=== PATIENT | male | born 1975 | race Caucasian/White ===

== ENCOUNTER 2022-05-10 11:56 | Emergency (ER) | payer OTHER, SELFPAY ==
[2022-05-10 12:04] VITALS: BP 118/72; PULSE 92; RESP 20; TEMP 36.4; O2SAT 95
--- NOTE | 2022-05-10 12:14 | ED.URI ---
HPI - URI/Sore Throat General Chief Complaint: Upper Respiratory Infection Stated Complaint: Chest Congestion/Cough Time Seen by Provider: 05/10/22 12:14 Source: patient and RN notes reviewed History of Present Illness HPI Narrative: Patient is a 47-year-old male who presents to urgent care with complaints of chest congestion, cough and wheezing. Patient states that it has been ongoing for the last few days and worsened. Patient states he has a history of bronchitis and pneumonia. States he has been using an inhaler provided by his doctor. Also been using Robitussin, Janice-[place], [id number] antihistamines and DayQuil/NyQuil. Patient also reports of a low-grade fever. No other acute complaints. No acute distress noted. Patient aware of the plan of care. Some parts of this dictation were generated by voice recognition software and may contain typographical and/or grammatical inaccuracies. Related Data Home Medications Medication Instructions Recorded Confirmed amlodipine 5 mg tablet mg 05/10/22 lisinopril 20 mg tablet mg 05/10/22 trazodone 50 mg tablet mg 05/10/22 Allergies Allergy/AdvReac Type Severity Reaction Status Date / Time No Known Allergies Allergy Unverified 01/03/15 15:43 Review of Systems Review of Systems: CONSTITUTIONAL: Reports of low-grade fever EYES: Denies visual changes, redness, or discharge. ENT: Denies rhinorrhea, congestion, sore throat, or otalgia. CARDIOVASCULAR: Denies chest pain, palpitations, or edema. RESPIRATORY: Reports chest congestion, cough and dyspnea GASTROINTESTINAL: Denies abdominal pain, nausea, vomiting, or diarrhea. GENITOURINARY: Denies dysuria or hematuria. SKIN: Denies rash or itching. MUSCULOSKELETAL: Denies back pain, joint pain, or myalgia. NEUROLOGIC: Denies headache, numbness, or weakness. All other systems reviewed are negative, except as documented in HPI. PMFSH Comments At the time of my signature, I reviewed and agree with the nursing past medical, surgical, social, and family history. There is no relevant family history pertinent to the patient complaint. Exam Narrative: GENERAL: This is a well-nourished, well-developed patient, in no apparent distress. HEAD: normocephalic, atraumatic. EYES: PERRL. Sclera clear/white. Vision is grossly intact. EARS: External ears normal, auditory canals clear and without drainage, slightly retracted, effused erythema neck right TM. Left TM normal without perforation. Hearing grossly intact. NOSE: External nose normal with no obvious nasal discharge, nares without redness, clear rhinorrhea. THROAT: Mucous membranes moist, posterior pharynx clear. Moderate postnasal drainage NECK: Neck supple RESPIRATORY: Inspiratory wheezes throughout with slight crackles in the bases SKIN: warm, intact with no suspicious lesions or rash, good texture and turgor. NEURO: awake, alert, and oriented to person, place and time. There were no obvious focal neurologic abnormalities. EXTREMITIES: No clubbing, cyanosis, or edema. Course Course Level of Care: Express Care Visit Vital Signs Vital signs: Vital Signs Temperature 97.6 F 05/10/22 12:04 Pulse Rate 92 05/10/22 12:04 Respiratory Rate 20 05/10/22 12:04 Blood Pressure 118/72 05/10/22 12:04 Pulse Oximetry 95 05/10/22 12:04 Oxygen Delivery Room Air 05/10/22 12:04 Temperature 97.6 F 05/10/22 12:04 Pulse Rate 92 05/10/22 12:04 Respiratory Rate 20 05/10/22 12:04 Blood Pressure 118/72 05/10/22 12:04 Pulse Oximetry 95 05/10/22 12:04 Oxygen Delivery Room Air 05/10/22 12:04 reviewed MDM - URI/Sore Throat MDM Narrative Medical decision making narrative: Advised patient complete the oral antibiotic regimen as prescribed. Be sure to eat and drink with medication. Complete the steroid taper as directed. Continue a daily antihistamine such as Claritin or Zyrtec. Use your inhaler as needed for wheezing or shortness of breath. Use the ne
== END 2022-05-10 12:39 | disposition home or self-care (01) ==
PROVIDERS: Emergency Provider Nurse Practitioner Family; PCP Physician Assistant
DX: J40 Bronchitis, not specified as acute or chronic (principal); H66.91 Otitis media, unspecified, right ear
CPT/HCPCS: 99203; G0463

== ENCOUNTER 2023-04-13 18:47 | Emergency (ER) | payer OTHER, SELFPAY ==
--- NOTE | 2023-04-13 18:51 | ED.URI ---
HPI - URI/Sore Throat General Chief Complaint: Upper Respiratory Infection Stated Complaint: Chest Congestion/Fever/Cough/Shortness of Breath Source: patient and RN notes reviewed Mode of arrival: ambulatory Limitations: no limitations History of Present Illness HPI Narrative: Patient is a 48-year-old male presents to the [facility] with complaints cough, fatigue, and congestion. He states that he had some mild congestion and fatigue starting yesterday. He developed a frequent nonproductive cough today power he reports low-grade fever earlier today that is no longer present. States that he has noticed some wheezing. The wheezing is present, he feels short of breath. He denies chest pain. Denies respiratory history. His respirations are unlabored at this time. Related Data Home Medications Medication Instructions Recorded Confirmed amlodipine 5 mg tablet 5 mg DIRECTED 05/10/22 04/13/23 lisinopril 20 mg tablet 20 mg DIRECTED 05/10/22 04/13/23 trazodone 50 mg tablet 50 mg DIRECTED 05/10/22 04/13/23 Allergies Allergy/AdvReac Type Severity Reaction Status Date / Time No Known Allergies Allergy Unverified 01/03/15 15:43 Review of Systems Review of Systems: CONSTITUTIONAL: Denies chills, or sweats. Reports fever. EYES: Denies visual changes, redness, or discharge. ENT: Denies otalgia and sore throat. Reports nasal congestion. CARDIOVASCULAR: Denies chest pain, palpitations, or edema. RESPIRATORY: Reports cough and dyspnea. GASTROINTESTINAL: Denies abdominal pain, nausea, vomiting, or diarrhea. GENITOURINARY: Denies dysuria or hematuria. SKIN: Denies rash or itching. MUSCULOSKELETAL: Denies back pain, joint pain, or myalgia. NEUROLOGIC: Denies headache, numbness, or weakness. Pertinent positives per HPI. PMFSH Comments At the time of my signature, I reviewed and agree with the nursing past medical, surgical, social, and family history. There is no relevant family history pertinent to the patient complaint. Exam Narrative: GENERAL: This is a well-nourished, well-developed patient, in no apparent distress. HEAD: normocephalic, atraumatic. EYES: Sclera clear/white. Vision is grossly intact. EARS: External ears normal. Hearing grossly intact. NOSE: External nose normal. Mild congestion. THROAT: Mucous membranes moist, posterior pharynx clear. NECK: Neck supple, non-tender without lymphadenopathy, masses or thyromegaly. CARDIOVASCULAR: Regular rate and rhythm without murmurs, gallops, or rubs. RESPIRATORY: Diffuse wheezes bilaterally. GASTROINTESTINAL: Abdomen soft, non-tender, nondistended. Bowel sounds are active. No hepato-splenomegaly, or palpable masses. No guarding. SKIN: warm, intact with no suspicious lesions or rash, good texture and turgor. NEURO: awake, alert, and oriented to person, place and time. There were no obvious focal neurologic abnormalities. Course Course Level of Care: Express Care Visit Vital Signs Vital signs: Vital Signs Temperature 98.3 F 04/13/23 18:54 Pulse Rate 103 H 04/13/23 18:54 Respiratory Rate 18 04/13/23 18:54 Blood Pressure 152/80 H 04/13/23 18:54 Pulse Oximetry 97 04/13/23 18:54 Oxygen Delivery Room Air 04/13/23 18:54 Temperature 98.3 F 04/13/23 19:02 Pulse Rate 103 H 04/13/23 19:18 Respiratory Rate 22 H 04/13/23 19:18 Blood Pressure 152/80 H 04/13/23 19:02 Pulse Oximetry 95 04/13/23 19:18 Oxygen Delivery Room Air 04/13/23 19:02 Reviewed MDM - URI/Sore Throat MDM Narrative Medical decision making narrative: Take steroids as directed. May use the inhaler every 4-6 hours as needed for coughing. Increase fluids at home. Avoid any and all smoke. May use a humidifier in the bedroom. Increase your Vitamin C. Follow-up with personal physician in 2-5 days. Breathing treatment and IM Solumedrol given in [facility]. Wheezing improved. Patient offered another treatment in the ED, but states that he has albuterol
[2023-04-13 18:54] VITALS: BP 152/80; PULSE 103; RESP 18; TEMP 36.8; O2SAT 97
[2023-04-13 19:02] VITALS: BP 152/80; PULSE 103; RESP 18; TEMP 36.8; O2SAT 97
[2023-04-13] MEDS: ALBUTEROL SULFATE NEB 2.5 MG/3 ML INH INHALATION (19:17)
[2023-04-13] MEDS: methylPREDNISolone SOD SUCC 125 MG VIAL 80 MG IM (19:17)
[2023-04-13 19:18] VITALS: PULSE 103; RESP 22; O2SAT 95
[2023-04-13 19:28] VITALS: PULSE 105; RESP 20; O2SAT 96
== END 2023-04-13 19:40 | disposition home or self-care (01) ==
PROVIDERS: Emergency Provider Nurse Practitioner; PCP Physician Assistant
DX: J20.8 Acute bronchitis due to other specified organisms (principal); Z20.822 Contact with and (suspected) exposure to COVID-19; I10 Essential (primary) hypertension; Z86.16 Personal history of COVID-19
CPT/HCPCS: 87426; 87804; 94640; 96372; 99213; G0463; J2930